=== PATIENT | male | born 1945 | race Caucasian/White ===

== ENCOUNTER → 2023-06-12 | Outpatient (CLI) | payer MEDICARE, OTHER, SELFPAY ==
--- NOTE | 2023-06-12 13:40 | CT_ITS ---
INDICATION: CHRONIC SINUSITIS EXAMINATION: CT SINUSES - CT Sinuses W/O Contrast Injection TECHNIQUE: Helically acquired images were obtained of the paranasal sinuses. A radiation dose optimization technique was used for this scan. IV Contrast dosage and agent: RADIATION DOSAGE (If Supplied By Facility): CTDIvol = ( 33.06 ) mGy, DLP = ( 726.41 ) mGycm COMPARISON: No relevant prior comparison study available FINDINGS: FRONTAL SINUSES AND RECESSES: Near complete opacification of the left frontal sinus with occlusion of the frontal ethmoidal recess. The right frontal sinus is well aerated, though there is also opacification at the frontoethmoidal recess on the right. ETHMOID AIR CELLS: Diffusely opacified bilateral ethmoid air cells with minimal aeration remaining at the posterior left. MAXILLARY SINUSES: Status post bilateral maxillary antrostomy. Moderate mucoperiosteal thickening bilaterally. SPHENOID SINUSES: Moderate opacification in both sphenoid sinuses. There is a connection between the sinuses. SPHENOETHMOIDAL RECESSES: Opacified bilaterally.. ANCILLARY FINDINGS: NASAL TURBINATES: Unremarkable. NASAL SEPTUM: Broad deviation to the left. ORBITS: Unremarkable. VISUALIZED DENTITION: The maxillary teeth are absent. Some of the mandibular teeth remain with no periapical lucency. There are dental caries noted. ANTERIOR CRANIAL FOSSA: Unremarkable. CT/Sinus/Facial Bone IMPRESSION: Extensive paranasal sinus opacification with occlusion of the frontoethmoidal and sphenoethmoidal recesses. Electronically Signed: Krishna Mcghee MD at 22:43 EDT ,
== END | disposition home or self-care (01) ==
PROVIDERS: PCP Family Medicine; Referring Provider Otolaryngology; Visit Provider Otolaryngology
DX: J32.8 Other chronic sinusitis (principal); R09.81 Nasal congestion
CPT/HCPCS: 70486

== ENCOUNTER 2023-09-17 09:12 | Day surgery (SDC) | payer MEDICARE, OTHER, SELFPAY ==
[2023-09-11 12:32] LABS: Hematocrit 50.9 % (40-54); Hemoglobin 16.4 g/dL (13.0-16.5); Mean Corp Hgb Conc 32.2 g/dL (32-36); Mean Corpuscular Hgb 31.3 pg (27.0-32.0); Mean Corpuscular Volume 97.1 fL (80-94); Mean Platelet Vol. 10.4 fl (6.2-12.0); Platelet Count 219 K/mm3 (150-450); RBC Distribution Width CV 12.6 % (11.6-14.6); RBC Distribution Width SD 45.4 fl (35.1-43.9); Red Blood Count 5.24 M/mm3 (4.6-6.2); White Blood Count 8.2 K/mm3 (4.4-11.0)
[2023-09-11 13:19] LABS: Anion Gap 5 (5-15); BUN 18 mg/dL (7-18); BUN/Creat Ratio 14.4 RATIO (10-20); Calcium,Total 9.2 mg/dL (8.5-10.1); Chloride 109 mmol/L (98-107); Creatinine, Serum 1.25 mg/dL (0.70-1.30); EST Glomerular Filtration Rate 60 mL/min (>60); Est Glom Filt Rate - Afr Amer 72 mL/min (>60); Glucose 104 mg/dL (74-106); Potassium 4.3 mmol/L (3.5-5.1); Sodium Level 139 mmol/L (136-145)
--- NOTE | 2023-09-17 | ETH_PTH ---
PATIENT: LUANNE JOSEPH LOC: [facility] [place] U#:[id number] AGE/SX: 78/M ROOM: RE09/17/[address]: Dr. George Christianson MD : 1945 BED: DIS: 09/17/2023 SPEC #: [id number] RECD: 09/17/23 13:25 STATUS: HILDA REJeffrey #: [id number] VERNA: 09/17/23 00:[address]: George Christianson DEPT: SURGICAL PATHOLOGY RECD BY: Shaq Edwards ENTERED: 09/17/23 13:26 SP TYPE: ETH TISS OTHR DR: Dr. Meme Andujar MD Tissues: A - Ethmoid sinus, NOS B - Ethmoid sinus, NOS Procedures: Decalcification bone/plaque Surgery Specimen Level III HEADER OPERATION: Septoplasty and functional endoscopic sinus surgery PRE-OP DIAGNOSIS: Polyp of nasal cavity, sinusitis TISSUE SUBMITTED: A - Left sinus contents, B - Right sinus contents MICROSCOPIC DIAGNOSIS A. Left sinus contents, curettings: Chronic sinusitis. Fragments of bone with no pathologic change. B. Right sinus contents, curettings: Consistent with chronic sinusitis. AM:sally 09/20/2023 MICROSCOPIC DESCRIPTION Slides are reviewed. GROSS DESCRIPTION A - Received in fixative is one container labeled with the patient's name and designated left sinus contents. The specimen consists of multiple irregular fragments of pink soft tissue mixed with fragments of bone that in aggregate measure 5.0 x 3.0 x 0.3 cm. The specimen is totally submitted in two cassettes after decalcification. B - Received in fixative is one container labeled with the patient's name and designated right sinus contents. The specimen consists of multiple irregular fragments of pink soft tissue mixed with fragments of bone that in aggregate measure 5.0 x 3.0 x 0.3 cm. The specimen is totally submitted in two cassettes. / SJ:sally 09/17/2023 TC:3 CPT: 57095 x2, 03020
[2023-09-17 09:56] VITALS: BP 144/71; PULSE 82; RESP 16; TEMP 37.2; O2SAT 100; BMI 28.7
[2023-09-17] MEDS: Lactated Ringers 1,000 ML 15 ML IV (10:05)
--- NOTE | 2023-09-17 10:49 | DCINST_ITS ---
Discharge Instructions Diet Discharge Diet: No restrictions Activity Discharge Activity: Return to Normal Activity Dressing / Incision Call your doctor if your incision/area has: Sudden Increased Bleeding Additional Dressing/Incision Instructions:: mupirocin to nostrils twice daily. saline to nostrils 5 times daily. sleep with head of bed elevated. Follow Up Care Please Follow Up With: George Christianson MD When: 1 week Test Results: Test results from this visit will be discussed in further detail at your follow- up appointment, if applicable. Discharge Plan Admission Attending Provider: George Christianson Primary Care Provider: Meme Andujar Discharge Orders/Prescriptions Prescriptions: No Action pantoprazole 40 mg tablet,delayed release (DR/EC) 40 mg PO MOWEFR Referrals / Follow Up: Meme Andujar MD [Primary Care Provider] - Disposition Disposition (needs filled in before D/C Order can be placed): Home, Self Care
--- NOTE | 2023-09-17 10:51 | OP.PCM_ITS ---
Problems Associated Problem List Diagnoses (1) Chronic pansinusitis: (2) Sinusitis with nasal polyps: (3) Nasal congestion: (4) Nasal turbinate hypertrophy: (5) Deviated nasal septum: Report of Operation Pre-Operative Diagnosis: 1. nasal congestion 2. nasal septal deviation 3. Nasal polyposis 4. inferior turbinate hypertrophy, right and left 5. chronic pansinusitis Post-Operative Diagnosis: 1. nasal congestion 2. nasal septal deviation 3. Nasal polyposis 4. inferior turbinate hypertrophy, right and left 5. chronic pansinusitis Surgery/Procedure Performed:: 1. endoscopic maxillary antrostomy with removal of contents, right and left 2. endoscopic total ethmoidecotmy, right and left 3. endoscopic sphenoidotomy with removal of contents, right and left 4. endoscopic frontal sinus exploration removal of contents, right and left 5. septoplasty 6. submucous and bony resection inferior turbinates, right and left 7. CT image guidance navigation Surgeon: George Christianson Type of Anesthesia: General Description of Procedure: On the day of the procedure, after appropriate informed consent was obtained, the patient was brought to the operating room and placed in a supine position on the operating room table. The patient was placed under general endotracheal anesthesia by the anesthesiologist. The endotracheal tube was secured.? image guidance navigation was set up on the face and accuracy was confirmed.? the nose was injected with lidocaine/epinephrine and decongested with oxymetazoline- soaked pledgets.? a marginal incision was made with a #15 blade on the left side.? a submucoperichondrial plane was developed on the patient's left side with a tavo elevator.? this was taken posteriorly to the bony/cartilaginous junction and inferiorly to the maxillary crest.? after an L-strut was marked, a large leftward defection and 2cm bony spur were removed with a D-knife and myrna albright.? the head of the right and left turbinates were injected with lidocaine/epinephrine.? the head of the left inferior turbinate was incised with a 15 blade, dissected submucosally with a tavo elevator, reduced using suction electrocautery and outfractured using a boies elevator. bony reduction was performed with a thru cut the head of the right inferior turbinate was incised with a 15 blade, dissected submucosally with a tavo elevator, reduced using suction electrocautery and outfractured using a boies elevator.? bony reduction was performed with a thru cut the zero degree endoscope was used to evaluate the left nasal cavity.? extensive polyps were removed from the middle meatus, frontal recess and sphenoethmoidal recess. the superior attachment of the right and left middle turbinate and uncinate processes were injected with lidocaine/epinephrine.? the left nasal cavity was evaluated.? the middle turbinate was medialized.? a revision maxillary antrostomy and uncinectomy were performed with a tavo elevator and a marce cut.? the antrostomy was widened with a back-biter.? purulent material was evacuated.? the ethmoid bulla was entered bluntly with the suction.? a total ethmoidectomy was performed with a curette and an upgoing blakesley.? this was taken superiorly to the skull base and laterally to the lamina.? a stankewicz maneuver was performed and no laminar defect was noted.? the natural sphenoid os was widened with the microdebrider and contents were evacuated.? fungus was removed from the sphenoethmoidal recess.? the frontal recess was explored and co ntents were evacuated.? hemostasis was achieved with suction cautery; kateryna was placed. the right nasal cavity was evaluated.? extensive polyps were removed from the middle meatus, frontal recess and sphenoethmoidal recess. the middle turbinate was medialized.? a revision maxillary antrostomy and uncinectomy were performed with a tavo elevator and a marce cut.? the antrostomy was widened with a back-biter.? purulent material was evacuated.? the ethmoid bulla was entered bluntly with the suction.? a total ethmoidectomy was performed with a curette and an upgoing blakesley.? this was taken superiorly to the skull base and laterally to the lamina.? a stankewicz maneuver was performed and no laminar defect was noted.? the natural sphenoid os was widened with the microdebrider and contents were evacuated.? fungus was removed from the sphenoethmoidal recess.? the frontal recess was explored and contents were evacuated.? hemostasis was achieved with suction cautery; kateryna was placed. brown splints were sutured into place.? a nasogastric tube was inserted orally and contents were evacuated.? the table was rotated 90 degrees toward the anesthesiologist and? was subsequently extubated uneventfully.? he was transferred to the PACU in stable condition.
[2023-09-17] MEDS: Oxymetazoline 0.05% 1 SPRAY SPRAY.BTL 15 SPRAY (11:09)
[2023-09-17] MEDS: Lidocaine 1% /Epi 1:100 (50ml) 50 ML VIAL (11:10)
[2023-09-17] MEDS: Mupirocin Ointment 22gm Tube 1 APPLIC (12:34)
[2023-09-17 12:57] VITALS: BP 144/71; BP 161/83; PULSE 73; RESP 16; TEMP 36.3; O2SAT 93
[2023-09-17 13:00] VITALS: BP 144/71; BP 150/75; PULSE 78; RESP 16; O2SAT 94
[2023-09-17 13:15] VITALS: BP 144/71; BP 165/68; PULSE 77; RESP 16; O2SAT 93
[2023-09-17 13:30] VITALS: BP 144/71; BP 146/64; PULSE 84; RESP 16; TEMP 36.6; O2SAT 92
[2023-09-17 14:22] VITALS: BP 144/71; BP 148/79; PULSE 77; RESP 16; TEMP 36.8; O2SAT 100
== END 2023-09-17 14:42 | disposition home or self-care (01) ==
LOC: SDC 09:13 → AC 09:13
PROVIDERS: PCP Family Medicine; Referring Provider Otolaryngology; Visit Provider Otolaryngology
PROC: (CPT 30520; principal; 2023-09-17 10:30)
DX: J34.2 Deviated nasal septum (principal); J33.0 Polyp of nasal cavity; J32.4 Chronic pansinusitis; J34.3 Hypertrophy of nasal turbinates; K21.9 Gastro-esophageal reflux disease without esophagitis; F17.210 Nicotine dependence, cigarettes, uncomplicated; Z79.899 Other long term (current) drug therapy
CPT/HCPCS: 31267; 31255; 30115; 30140; 00160; 36415; 80048; 85027; 88304; 88305; 88311; 93005; J7120; J2405